=== PATIENT | male | born 1960 | race Caucasian/White ===

== ENCOUNTER → 2020-07-24 | Day surgery (SDC) | payer OTHER ==
[~2020-07-24] MED LIST: ATORVASTATIN CA20 MG PO; CLARITIN10 MG PO; COZAAR100 MG PO; FEOSOL325 MG PO; IBUPROFEN800 M1 PO; MELOXICAM7.5 MG PO; METAXALONE800 MG PO; OMEPRAZOLE40 MG PO; PERCOCET 7.5/321 TAB PO; PREGABALIN50 MG PO; PROPRANOLOL HCL10 MG PO; ULTRA-LIGHT RO1 EACH XX; VITAMIN D350 MCG PO; XARELTO10 MG PO; ZOFRAN4 M1 PO
[2020-07-24 13:24] LABS: BUN/CREAT RATIO (CALC) 27.4 RATIO; CREATININE 0.62 mg/dL (0.67-1.17); POTASSIUM 4.2 mmol/L (3.5-5.1)
== END | disposition home or self-care (01) ==
LOC: FAS 11:21
PROVIDERS: Anesthesiology
DX: M24.662 Ankylosis, left knee (principal); K21.9 Gastro-esophageal reflux disease without esophagitis; E66.01 Morbid (severe) obesity due to excess calories; G47.30 Sleep apnea, unspecified; Z98.890 Other specified postprocedural states; Z99.89 Dependence on other enabling machines and devices; Z20.822 Contact with and (suspected) exposure to COVID-19; Z96.652 Presence of left artificial knee joint
CPT/HCPCS: 36415; 80048; J1100; J2250; J2704; J2795; J3010; J7120

== ENCOUNTER 2021-12-03 11:43 | Emergency (ER) | payer OTHER ==
[2021-12-03 12:10] LABS: BASOPHIL 0.5 % (0-2); EOSINOPHIL 5.2 % (0-5); HCT 45.8 % (42.0-52.0); HGB 15.5 g/dl (13.2-18.0); LYMPHOCYTE 25.7 % (15-48); MCH 31.1 pg (25.0-31.0); MCHC 33.8 g/dL (32.0-36.0); MCV 91.8 fL (78.0-100.0); MONOCYTE 7.6 % (0-12); MPV 10.2 fL (6.0-9.5); NEUTROPHIL 60.3 % (41-80); NRBC 0; PLT 277 K/uL (150-400); RBC 4.99 M/uL (4.70-6.00); RDW 13.2 % (11.5-14.0); WBC 10.5 K/uL (4.0-10.5)
[2021-12-03 12:26] LABS: ALBUMIN 3.9 g/dL (3.4-5.0); BILIRUBIN - TOTAL 0.5 mg/dL (0.2-1.0); BUN/CREAT RATIO (CALC) 17.6 RATIO; CREATININE 0.85 mg/dL (0.67-1.17); GLOBULIN (CALCULATION) 3.3 g/dL; POTASSIUM 4.3 mmol/L (3.5-5.1); TOTAL PROTEIN 7.2 g/dL (6.4-8.2)
[2021-12-03 14:10] LABS: BILIRUBIN NEGATIVE (NEGATIVE); BLOOD 2+ Ery/uL (NEGATIVE); CLARITY CLEAR (CLEAR); COLOR YELLOW (YELLOW); GLUCOSE (U) NORMAL (NORMAL); LEUKOCYTES NEGATIVE Leu/uL (NEGATIVE); NITRITE NEGATIVE (NEGATIVE); PROTEIN NEGATIVE (NEGATIVE); UROBILINOGEN 0.2 mg/dL (0.2-1.0); pH 7.5 (5.0-9.0)
[2021-12-03 14:39] LABS: URINARY WBC RARE
[2021-12-03] MEDS ORDERED: ONDANSETRON ODT4 MG PO (14:45)
[2021-12-03] MEDS ORDERED: FLOMAX0.4 MG PO (14:45)
== END 2021-12-03 15:00 | disposition home or self-care (01) ==
LOC: FER 11:43
PROVIDERS: Emergency Medicine
DX: N13.2 Hydronephrosis with renal and ureteral calculous obstruction (principal); R11.2 Nausea with vomiting, unspecified; I10 Essential (primary) hypertension; E66.9 Obesity, unspecified
CPT/HCPCS: 36415; 71275; 80053; 81001; 83605; 83690; 84484; 85025; 93005; J1170; J2270; J2405; J7030; Q9967